=== PATIENT | male | born 2000 | race American Indian/Alaskan Native ===

== ENCOUNTER 2020-05-29 13:58 | Emergency (ER) | payer SELFPAY ==
[2020-05-29 14:03] VITALS: BP 119/73
--- NOTE | 2020-05-29 15:45 | Emergency Department Report ---
Chief Complaint: Sore Throat Stated Complaint: BODYACHE/SORE THROAT Time Seen by Provider: 05/29/20 15:28 - HPI History of Present Illness: Patient is a 20-year-old male who presents emergency room with complaints of a sore throat that began yesterday. He states he occasionally has mild discomfort with swallowing. He denies any fever, vomiting, diarrhea, ear pain, difficulty swallowing, shortness of breath. He denies any sick contacts or recent travel. He denies any past medical history. No allergies medications. He states that he already received COVID testing and he reports that it was negative. Vitals are normal On exam: Non toxic appearing, no acute distress atraumatic, normocephalic normal appearance of the eyes, PERRL, EOMI, no periorbital edema or ecchymosis moist mucus membranes, normal oropharynx, no tonsillar hypertrophy or exudates, uvula is midline, no uvular edema or deviation, no tongue elevation, no trismus, bilateral TMs and canals are normal, normal nasal turbinates, no cervical LAD regular heart rate and rhythm, no gallops, no rubs, no murmurs breath sounds are clear bilaterally, no w/r/r, , no stridor, no respiratory distress, no accessory muscle use A&O x4, no focal neuro deficit skin is warm, dry, intact Patient is presenting with viral-like symptoms His Centor criteria is 0 He has no signs of tonsillitis, pharyngitis, peritonsillar abscess advised pt Please increase your water intake over the next several days. May do warm salt water gargles 3-5 times a day. May use [id number] throat lozenges and throat spray. Follow-up with a primary care doctor in the next 2 to 3 days for reexamination. Return to emergency room for any new or worsening symptoms. Discussed strict return precautions Medical screening examination performed there is no threat to life or limb at this time - Exam Vital Signs: Vital Signs 05/29/20 14:00 Temperature 98.2 F Pulse Rate 82 Respiratory 20 Rate Blood Pressure 119/73 O2 Sat by Pulse 99 Oximetry MSE screening note: Focused history and physical exam performed. ED Disposition for MSE Clinical Impression: Sore throat (viral) Disposition: MED SCREENING EXAM-LEFT Is pt being admited?: No Does the pt Need Aspirin: No Condition: Stable Instructions: Viral Syndrome (ED) Additional Instructions: Please increase your water intake over the next several days. May do warm salt water gargles 3-5 times a day. May use [id number] throat lozenges and throat spray. Follow-up with a primary care doctor in the next 2 to 3 days for reexamination. Return to emergency room for any new or worsening symptoms. Referrals: STANISLAV PASCUAL MD [Staff Physician] - 2-3 Days [facility] [Provider Group] - 2-3 Days Forms: Work/School Release Form(ED) Time of Disposition: 15:44 Print Language: CITIZEN OF [place]
== END 2020-05-29 16:16 | disposition left against medical advice (07) ==
LOC: ED 13:58
DX: J02.8 Acute pharyngitis due to other specified organisms (principal); Z53.21 Procedure and treatment not carried out due to patient leaving prior to being seen by health care provider